=== PATIENT | female | born 1970 | race Caucasian/White ===

== ENCOUNTER 2022-09-15 22:10 | Outpatient (REF) | payer OTHER, SELFPAY | END 2022-09-15 22:11 | disposition home or self-care (01) | LOC: NCHCN 22:10 | PROVIDERS: Visit Provider Physician Assistant | DX: J02.9 Acute pharyngitis, unspecified (principal) | CPT/HCPCS: 87081 ==

== ENCOUNTER 2023-04-16 20:00 | Outpatient (REF) | payer OTHER, SELFPAY ==
[2023-04-16 20:28] LABS: HCT 42.2 % (36.0-46.0); HGB 14.6 g/dL (11.2-15.7); MCH 31.7 pg (27.0-33.0); MCHC 34.6 % (32.0-36.0); MCV 92 fL (80-95); MPV 10.6 fL (8.0-11.0); Platelet Count 291 10^3/uL (130-400); RBC 4.61 10^6/uL (3.93-5.22); RDW 11.6 % (11.7-14.6); RDW-SD 38.8 fL; WBC 9.41 10^3/uL (4.4-10.8)
[2023-04-16 20:51] LABS: Anion Gap 9.9 mmol/L (3-11); BUN 10 mg/dL (7-18); CO2 25.1 mmol/L (21.0-32.0); CREATININE 0.7 mg/dL (0.55-1.02); Calcium 9.1 mg/dL (8.5-10.1); Chloride 104 mmol/L (98-107); Estimated GFR 102.71 (mL/min/1.73m2); Glucose 113 mg/dL (74-106); Potassium 3.5 mmol/L (3.5-5.1); Sodium 139 mmol/L (136-145)
[2023-04-18 11:22] LABS: Lyme Ab w Rflx to Lyme Confirm Negative (Negative)
[2023-04-20 17:11] LABS: Anaplasma phagocytophilum Negative (Negative); B. miyamotoi PCR Negative (Negative); Babesia divergens/MO-1 Negative (Negative); Babesia duncani Negative (Negative); Babesia microti Negative (Negative); Ehrlichia chaffeensis Negative (Negative); Ehrlichia ewingii/canis Negative (Negative); Ehrlichia muris eauclairensis Negative (Negative)
== END 2023-04-16 20:01 | disposition home or self-care (01) ==
LOC: NCHCN 20:00
PROVIDERS: Visit Provider Nurse Practitioner Family
DX: R53.81 Other malaise (principal); R53.83 Other fatigue; Z11.8 Encounter for screening for other infectious and parasitic diseases; R73.09 Other abnormal glucose
CPT/HCPCS: 80048; 85027; 87798; 86618

== ENCOUNTER 2023-04-24 08:17 | Outpatient (REF) | payer OTHER, SELFPAY ==
[2023-04-24 19:59] LABS: Abs Immature Grans 0.04 10^3/uL (0.0-0.06); Absolute Basophil Count 0.06 10^3/uL (0.0-0.2); Absolute Eosinophil Count 0.08 10^3/uL (0.0-0.7); Absolute Lymphocyte Count 1.31 10^3/uL (1.2-3.4); Absolute Monocyte Count 0.61 10^3/uL (0.1-0.8); Absolute Neutrophil Count 5.75 10^3/uL (1.2-6.7); Basophils % 0.8; HCT 44.8 % (36.0-46.0); HGB 15.5 g/dL (11.2-15.7); Immature Grans % 0.5; Lymphocytes % 16.7; MCH 32.4 pg (27.0-33.0); MCHC 34.6 % (32.0-36.0); MCV 94 fL (80-95); MPV 11.1 fL (8.0-11.0); Monocytes % 7.8; Neutrophils % 73.2; Platelet Count 248 10^3/uL (130-400); RBC 4.79 10^6/uL (3.93-5.22); RDW 11.9 % (11.7-14.6); RDW-SD 41.1 fL; WBC 7.85 10^3/uL (4.4-10.8)
[2023-04-24 20:17] LABS: TSH (W/Ref FT4) 0.97 uIU/mL (0.36-3.74)
[2023-04-24 20:51] LABS: C-Reactive Protein 0.38 mg/dL (0.0-0.3)
[2023-04-25 14:12] LABS: ESR (LRH) 4 mm/hr
[2023-04-26 23:00] LABS: Trichinella Antibody IgG Negative (Negative)
== END 2023-04-24 08:18 | disposition home or self-care (01) ==
LOC: NCHCN 08:17
PROVIDERS: Visit Provider Nurse Practitioner Family
DX: R53.83 Other fatigue (principal); R10.9 Unspecified abdominal pain
CPT/HCPCS: 85652; 84443; 85025; 86140; 86784

== ENCOUNTER 2024-08-25 18:09 | Outpatient (REF) | payer BC, SELFPAY ==
[2024-08-25 19:02] LABS: Bilirubin Negative (Negative); Blood Large (Negative); Clarity Clear (Clear); Glucose Negative (Negative); Ketones Negative (Negative); Leukocyte Esterase Trace (Negative); Nitrite Negative (Negative); Urobilinogen 0.2 mg/dL (Up to 0.2)
[2024-08-25 19:20] LABS: Bacteria Rare HPF (Negative); C & S Indicated? Yes; Casts Negative LPF (Negative); Crystals Negative HPF (Negative); Epithelial Cells Rare HPF (Negative); Mucus Negative (Negative)
== END 2024-08-25 18:10 | disposition home or self-care (01) ==
LOC: NCHCN 18:09
PROVIDERS: Visit Provider Nurse Practitioner Family
DX: N39.0 Urinary tract infection, site not specified (principal); B96.29 Other Escherichia coli [E. coli] as the cause of diseases classified elsewhere
CPT/HCPCS: 87077; 81003; 81015; 87086; 87186

== ENCOUNTER 2024-09-11 16:56 | Outpatient (REF) | payer BC, SELFPAY ==
[2024-09-11 19:17] LABS: Bilirubin Negative (Negative); Blood Trace-lysed (Negative); Clarity Clear (Clear); Glucose Negative (Negative); Ketones Negative (Negative); Leukocyte Esterase Moderate (Negative); Nitrite Negative (Negative); Specific Gravity <= 1.005 (1.005-1.025); Urobilinogen 0.2 mg/dL (Up to 0.2)
[2024-09-11 19:26] LABS: WBC 20-50 HPF (0-5)
[2024-09-11 19:27] LABS: Bacteria Rare HPF (Negative); C & S Indicated? C&S Done As Ordered; Casts Negative LPF (Negative); Crystals Negative HPF (Negative); Epithelial Cells Negative HPF (Negative); Mucus Negative (Negative); RBC Negative HPF (0-2)
== END 2024-09-11 16:57 | disposition home or self-care (01) ==
LOC: NCHCN 16:56
PROVIDERS: Visit Provider Physician Assistant
DX: R30.0 Dysuria (principal); R82.89 Other abnormal findings on cytological and histological examination of urine
CPT/HCPCS: 81003; 81015; 87086

== ENCOUNTER 2024-09-23 08:47 | Outpatient (REF) | payer BC, SELFPAY ==
[2024-09-23 19:34] LABS: ALT 30 U/L (14-59); AST 24 U/L (15-37); Albumin 3.7 g/dL (3.4-5.0); Alkaline Phosphatase 78 U/L (46-116); Anion Gap 6.8 mmol/L (3-11); BUN 10 mg/dL (7-18); Bilirubin, Total 0.47 mg/dL (0.2-1.0); CO2 29.2 mmol/L (21.0-32.0); CREATININE 0.8 mg/dL (0.55-1.02); Calcium 9.1 mg/dL (8.5-10.1); Calculated LDL 91 mg/dL (<100); Chloride 108 mmol/L (98-107); Cholesterol 184 mg/dL (<200); Estimated GFR 86.96 (mL/min/1.73m2); Glucose 89 mg/dL (74-106); HDL Cholesterol 82 mg/dL (>or=50); Potassium 4.3 mmol/L (3.5-5.1); Sodium 144 mmol/L (136-145); Triglyceride 59 mg/dL (<150)
== END 2024-09-23 08:48 | disposition home or self-care (01) ==
LOC: NCHCN 08:47
PROVIDERS: PCP Nurse Practitioner Family; Visit Provider Nurse Practitioner Family
DX: Z13.6 Encounter for screening for cardiovascular disorders (principal)
CPT/HCPCS: 80053; 80061